=== PATIENT | male | born 1940 | race Caucasian/White ===

== ENCOUNTER 2019-07-04 07:42 | Emergency (ER) | payer MEDICARE, BC ==
[2019-07-04] MEDS ORDERED: Tranexamic Acid 1,000 MG/10 ML VIAL ONE (08:21)
== END 2019-07-04 07:44 | disposition home or self-care (01) ==
LOC: ERS 07:42
DX: R04.0 Epistaxis (principal); K21.9 Gastro-esophageal reflux disease without esophagitis; I10 Essential (primary) hypertension; M10.9 Gout, unspecified
CPT/HCPCS: 99283